=== PATIENT | male | born 1945 | race Caucasian/White ===

== ENCOUNTER 2017-11-19 07:32 | Outpatient (CLI) | payer OTHER ==
[~2017-11-19 07:32] MED LIST: ECOTRIN81 MG; NORVASC5 MG; TOPROL XL100 MG
== END 2017-11-19 07:37 | disposition home or self-care (01) ==
LOC: RAD 07:32
DX: M41.9 Scoliosis, unspecified (principal)

== ENCOUNTER 2018-09-24 10:15 | Outpatient (CLI) | payer OTHER ==
[~2018-09-24 10:15] MED LIST changes: +LYRICA50 MG PO; +MEDROLPACK PO; +NABUMETONE500 MG PO; +PREVACID30 M1 PO
== END 2018-09-24 10:22 | disposition home or self-care (01) ==
LOC: RAD 10:15
DX: E78.49 Other hyperlipidemia (principal); Z12.11 Encounter for screening for malignant neoplasm of colon; I11.9 Hypertensive heart disease without heart failure; Z79.84 Long term (current) use of oral hypoglycemic drugs; I48.2 Chronic atrial fibrillation; I48.92 Unspecified atrial flutter

== ENCOUNTER 2019-07-16 07:13 | Outpatient (CLI) | payer OTHER | END 2019-07-16 08:00 | disposition home or self-care (01) | LOC: TOM 07:13 | DX: I11.9 Hypertensive heart disease without heart failure (principal); I48.92 Unspecified atrial flutter; M51.27 Other intervertebral disc displacement, lumbosacral region; M51.36 Other intervertebral disc degeneration, lumbar region; M51.87 Other intervertebral disc disorders, lumbosacral region; N41.1 Chronic prostatitis; Z12.11 Encounter for screening for malignant neoplasm of colon; E78.1 Pure hyperglyceridemia; E78.49 Other hyperlipidemia; E55.0 Rickets, active; I70.0 Atherosclerosis of aorta; Z79.01 Long term (current) use of anticoagulants | CPT/HCPCS: 74178; Q9965 ==